=== PATIENT | male | born 1980 | race Caucasian/White ===

== ENCOUNTER 2019-04-13 09:04 | Emergency (ER) | payer BC ==
[~2019-04-13] VITALS: Ht 172.7 cm; Wt 89.5 kg
[2019-04-13 09:04] VITALS: BP 129/87
[2019-04-13] MEDS ORDERED: IBUP-1022 PO (09:15)
--- NOTE | 2019-04-13 11:14 | REP ---
INDICATION: Back pain following trauma PROCEDURE: Plain film study of the lumbosacral spine. COMPARISON STUDIES: . No prior similar studies FINDINGS: No acute fracture or malalignment. Degenerative changes are seen with osteophytes, more prominent than T11-T12 level on the left. No evidence of a limiting canal or foraminal stenosis on plain film study. IMPRESSION: No acute findings. No fracture or subluxation. Electronically Signed by Abraham Salazar MD 04/13/2019 11:05 A
[2019-04-13] MEDS ORDERED: ACETAMINOPHEN 325 MG TAB PO ONE (12:00)
[2019-04-13] MEDS ORDERED: KETOROLAC 60 MG/2 ML VIAL (J1885) IM ONE (12:00)
[2019-04-13] MEDS ORDERED: LIDOCAINE 5% (LIDODERM) PATCH TD ONE (12:00)
[2019-04-13 12:19] LABS: APPEARANCE, URINE CLEAR (CLEAR); BACTERIA, URINE AUTO NEGATIVE (NEGATIVE); BILIRUBIN, URINE AUTO NEGATIVE (NEGATIVE); BLOOD, URINE BLOOD NEGATIVE (NEGATIVE); COLOR, URINE STRAW (YELLOW); GLUCOSE, URINE (UA) AUTO NEGATIVE (NEGATIVE); KETONE, URINE AUTO NEGATIVE (NEGATIVE); LEUKOCYTE ESTERASE, URINE AUTO NEGATIVE (NEGATIVE); NITRITE, URINE AUTO NEGATIVE (NEGATIVE); PROTEIN, URINE AUTO NEGATIVE (NEGATIVE); RBC, URINE AUTO 0 /HPF (0-3); SPECIFIC GRAVITY URINE AUTO 1.004 (1.002-1.035); SQUAMOUS EPITHELIAL CELL UR AU 0 /HPF (0-6); UROBILINOGEN, URINE AUTO 0.2 mg/dL (0.0-2.0); WBC, URINE AUTO 0 /HPF (0-3)
[2019-04-13] MEDS ORDERED: NORCO, ANEXSIA 5/325MG TABLET (HYDROcodone/ACETAMINOPHEN) PO ONE (13:15)
[2019-04-13] MEDS ORDERED: NORC1TAB7 PO (13:18)
[2019-04-13] MEDS ORDERED: KETO10TAB PO (13:18)
[2019-04-13] MEDS ORDERED: LIDO5DIS41 TD (13:20)
[2019-04-13] MEDS ORDERED: **NOTE PATIENT COMMENT** MISC XX SCH (21:00)
== END 2019-04-13 13:30 | disposition home or self-care (01) ==
LOC: M ED 09:04
DX: S30.0XXA Contusion of lower back and pelvis, initial encounter (principal); W01.0XXA Fall on same level from slipping, tripping and stumbling without subsequent striking against object, initial encounter; Y92.9 Unspecified place or not applicable; Y93.9 Activity, unspecified; Y99.9 Unspecified external cause status; M25.78 Osteophyte, vertebrae; Z79.899 Other long term (current) drug therapy
CPT/HCPCS: 72110; 81001; 99282; J1885

== ENCOUNTER → 2021-03-29 | Outpatient (CLI) | payer BC ==
[~2021-03-29] MED LIST: IBUP-1022 PO; KETO10TAB PO; LIDO5DIS41 TD; NORC1TAB7 PO
--- NOTE | 2021-03-29 12:18 | REP ---
INDICATION: R68.84 JAW PAIN. COMPARISON: None. TECHNIQUE: Six views total FINDINGS: Limited plain film evaluation of the mandible and TMJs shows no evidence of an acute fracture. Translation appears to be within normal limits on the open-mouth views. The mandibular condyles appear symmetric. There is no evidence of a destructive osseous lesion. IMPRESSION: 1. Limited plain film examination of the mandible and TMJs showing no gross abnormality. If discopathy is of clinical concern then an MRI is recommended using cine technique. If a fracture or other osseous abnormality is of clinical concern then I would recommend a CT. <Electronically signed by Ren Ramos > 03/29/21 [id number]
[2021-03-29 13:08] LABS: CHOLESTEROL RISK RATIO 4.033 (<5)
== END ==
LOC: M WUC 11:38
PROVIDERS: ATTEND Family Medicine
DX: Z13.220 Encounter for screening for lipoid disorders (principal); R68.84 Jaw pain

== ENCOUNTER → 2023-11-28 | Outpatient (CLI) | payer BC | LOC: M WHC 06:39 | PROVIDERS: ATTEND Family Medicine | DX: R10.84 Generalized abdominal pain (principal) ==

== ENCOUNTER 2024-03-16 08:44 | Day surgery (SDC) | payer BC ==
[~2024-03-16] VITALS: Ht 177.8 cm; Wt 87.9 kg
[2024-03-16] MEDS ORDERED: ONDANSETRON 4MG 2ML VIAL As Ordered ONE (09:19)
[2024-03-16] MEDS ORDERED: propofoL 200 MG/20 ML VIAL As Ordered ONE (09:19)
[2024-03-16] MEDS ORDERED: LIDOCAINE 2% 100MG/5ML SDV (FOR ANES.) As Ordered ONE (09:19)
[2024-03-16] MEDS ORDERED: MIDAZOLAM INJ 2MG/2ML VIAL As Ordered ONE (09:20)
[2024-03-16] MEDS ORDERED: NS (Normal Saline) 0.9% 1,000 ML IV SCH (09:20)
[2024-03-16] MEDS ORDERED: fentaNYL 100 MCG/2 ML INJECTION As Ordered ONE (09:31)
[2024-03-16] MEDS ORDERED: ONDANSETRON 4MG 2ML VIAL IV STA (09:49)
[2024-03-16] MEDS: LIDOCAINE W/EPINEPHRINE 1% 20ML VIAL As Ordered ONE (10:42)
[2024-03-16 11:55] VITALS: BP 130/72; TEMP 98.2; O2SAT 99
== END 2024-03-16 12:02 | disposition home or self-care (01) ==
LOC: M SDC 08:44
PROVIDERS: ATTEND Surgery
DX: L72.0 Epidermal cyst (principal); Z86.14 Personal history of Methicillin resistant Staphylococcus aureus infection; F17.290 Nicotine dependence, other tobacco product, uncomplicated
CPT/HCPCS: 11402; 11403; 88304; J1100; J2250; J2405; J3010

== ENCOUNTER 2024-06-19 06:53 | Day surgery (SDC) | payer BC ==
[~2024-06-19] VITALS: Ht 175.3 cm; Wt 85.7 kg
[2024-06-19] MEDS ORDERED: propofoL 200 MG/20 ML VIAL As Ordered ONE (07:28)
[2024-06-19] MEDS ORDERED: LIDOCAINE 2% 100MG/5ML SDV (FOR ANES.) As Ordered ONE (07:28)
[2024-06-19 08:30] VITALS: BP 119/69; O2SAT 98
== END 2024-06-19 08:37 | disposition home or self-care (01) ==
LOC: M OPP 06:53
PROVIDERS: ATTEND Surgery
DX: Z12.11 Encounter for screening for malignant neoplasm of colon (principal); D12.3 Benign neoplasm of transverse colon; K64.1 Second degree hemorrhoids; Z12.12 Encounter for screening for malignant neoplasm of rectum; Z87.891 Personal history of nicotine dependence